=== PATIENT | female | born 1990 | race Two or more races ===

== ENCOUNTER → 2016-05-25 | Outpatient (CLI) | payer OTHER ==
[2016-05-25 16:38] LABS: LIPASE 476.8 U/L (23-300)
[2016-05-30 07:25] LABS: DEAMIDATED GLIADIN IGA AB 2 units (0-19); DEAMIDATED GLIADIN IGG AB 2 units (0-19); IMMUNOGLOBULIN A 2 143 mg/dL (87-352); T-TRANSGLUTAMINASE (TTG) IGG <2 U/mL (0-5)
== END ==
LOC: LAB 15:40
PROVIDERS: ATTEND Specialist
DX: K85.90 Acute pancreatitis without necrosis or infection, unspecified (principal); K58.9 Irritable bowel syndrome, unspecified; R10.9 Unspecified abdominal pain; K90.0 Celiac disease
CPT/HCPCS: 36415; 82150; 83520; 83690; 86677

== ENCOUNTER → 2016-06-15 | Outpatient (CLI) | payer OTHER ==
[2016-06-15 15:09] LABS: ALANINE AMINOTRANSFERASE 26 U/L (9-52); ALBUMIN 4.7 g/dL (3.5-5.0); ALKALINE PHOSPHATASE 73 U/L (38-126); AMYLASE 112 U/L (30-110); ANION GAP 13 (5-19); ASPARTATE AMINO TRANSFERASE 20 U/L (14-36); BILIRUBIN,TOTAL 2.1 mg/dL (0.2-1.3); BLOOD UREA NITROGEN 14 mg/dL (7-20); CALCIUM 9.4 mg/dL (8.4-10.2); CARBON DIOXIDE 24 mmol/L (22-30); CHLORIDE 103 mmol/L (98-107); GLUCOSE 93 mg/dL (75-110); LIPASE 640.4 U/L (23-300); SODIUM 140.3 mmol/L (137-145); TOTAL PROTEIN 7.3 g/dL (6.3-8.2)
== END ==
LOC: LAB 14:39
PROVIDERS: ATTEND Specialist
DX: R10.9 Unspecified abdominal pain (principal)
CPT/HCPCS: 36415; 80053; 82150; 83690

== ENCOUNTER 2016-06-23 09:28 | Day surgery (SDC) | payer OTHER ==
--- NOTE | 2016-06-22 13:55 | HISTORY AND PHYSICAL E ---
History and Physical NAME: CEDRIC GUERIN : 1990 AGE: 25Y ADMITTED: 06/23/2016 ROOM: CHIEF COMPLAINT: Abdominal pain, question pancreatitis, constipation, multiple history of pancreatitis, 06/2011, 06/2012. SOCIAL HISTORY: . Does not smoke. Does not drink. PAST SURGICAL HISTORY: 1. Appendectomy. 2. Cholecystectomy. ALLERGIES: The patient stated that she may be allergic to POTATO. REVIEW OF SYSTEMS: HEAD, EYES, EARS, NOSE AND THROAT: Eyeglasses. RESPIRATORY: Negative. ENDOCRINE: Negative. GASTROINTESTINAL: Pancreatitis, abdominal pain, constipation. ONCOLOGY/HEMATOLOGY: Negative. NEUROLOGIC: Anxiety. FAMILY HISTORY: Father is alive. Mom is alive. PHYSICAL EXAMINATION: VITAL SIGNS: Blood pressure is 190/60. Pulse 70. Respirations 18. Temperature is 98. HEAD, EYES, EARS, NOSE AND THROAT: Normal. ABDOMEN: Soft. NEUROLOGIC: Exam negative. MEDICATIONS: 1. Tylenol. 2. control. CONCLUSIONS: Recurrent pancreatitis. PLAN: Rule out peptic ulcer, abdominal pain, reflux, H. pylori. Repeat lab studies. Soft diet. Upper endoscopy scheduled for 06/23/2016. DICTATING PHYSICIAN: LATHA ROUSE M.D. [id number] PHY#: [id number] ID: [id number] JOB#: [id number] ACCT: [id number] cc:[facility] LATHA ROUSE M.D. >
[~2016-06-23 09:28] MED LIST: EPINEPHRINE INJ 1 MG/10 ML DISP.SYRIN ONE; FENTANYL CITRATE INJ/PF 100 MCG/2 ML AMPUL ONE; FLUMAZENIL INJ 0.5 MG/5 ML VIAL IV ONE; GLYCOPYRROLATE INJ 0.4 MG/2 ML VIAL ONE; NALOXONE HCL INJ/PF 0.4 MG/1 ML SDV ONE; ONDANSETRON HCL INJ/PF 4 MG/2 ML SDV ONE; PROMETHAZINE HCL INJ 25 MG/1 ML VIAL ONE
[2016-06-23] MEDS: MIDAZOLAM 2 MG/2 ML INJ ONE ×2 (10:12→10:17)
--- NOTE | 2016-06-23 11:55 | DISCHARGE SUMMARY E ---
Discharge Summary NAME: CEDRIC GUERIN : 1990 AGE: 25Y ADMITTED: 06/23/2016 DISCHARGED: 06/23/2016 PROCEDURE: EGD with biopsy. HISTORY: This 25-year-old female presented with abdominal pain, questionable pancreatitis, high lipase. Today's upper scope shows no ulcers. She did have mild esophagitis, small hiatus hernia, mild gastritis, mild duodenitis. Gastric biopsy obtained for H. pylori. DISCHARGE PLAN: Awaiting biopsy results. Soft diet. Continue present management. The patient is to see us in the office in the next few days. FINAL DIAGNOSES: 1. Small hiatus hernia. 2. Mild esophagitis. 3. Mild gastritis. 4. Mild duodenitis. 5. No ulcers and no malignancy. DICTATING PHYSICIAN: LATHA ROUSE M.D. [id number] PHY#: [id number] ID: [id number] JOB#: [id number] ACCT: [id number] cc:[facility] LATHA ROUSE M.D. >
--- NOTE | 2016-06-23 12:13 | OPERATIVE REPORT E ---
Operative Report NAME: CEDRIC GUERIN : 1990 AGE: 25Y DATE OF SURGERY: 06/23/2016 ROOM: PREOPERATIVE DIAGNOSIS: The patient is 25 with preop of abdominal pain, question pancreatitis. POSTOPERATIVE DIAGNOSIS: 1. Small hiatal hernia 0.5 cm. 2. Mild esophagitis. 3. Mild gastritis. 4. Mild duodenitis. PROCEDURES: 1. Esophagoscopy. 2. Gastroscopy. 3. Duodenoscopy. SURGEON: LATHA ROUSE M.D. TISSUE REMOVED OR ALTERED: Gastric biopsy, H pylori. ANESTHESIA: Versed 4, fentanyl 100. DESCRIPTION OF PROCEDURE: The patient said she cannot take Zofran. After adequate sedation, baby scope passed under guided vision. No difficulties. Esophagoscopy: Junction at 35, 0.5 cm hiatal hernia. No evidence of stricture. Mild esophagitis. Gastroscopy: Mild gastritis. No ulcers. Duodenoscopy: Mild duodenitis. CONCLUSION: 1. Mild esophagitis. 2. Mild gastritis. 3. Mild duodenitis. 4. Gastric biopsy obtained. PLAN: The patient tolerated the procedure well and discharged to her room in stable condition. DICTATING PHYSICIAN: LATHA ROUSE M.D. [id number] Y#: [id number] ID: [id number] JOB#: [id number] ACCT: [id number] cc:[facility] LATHA STEIN M.D. >
[2016-06-23 12:32] VITALS: BP 85/54
== END 2016-06-23 11:40 | disposition home or self-care (01) ==
LOC: END 09:28
PROVIDERS: ATTEND Specialist
PROC: 0DB68ZX Excision of Stomach, Via Natural or Artificial Opening Endoscopic, Diagnostic (ICD-10-PCS; principal; 2016-06-23 10:00)
DX: K20.9 Esophagitis, unspecified (principal); K29.70 Gastritis, unspecified, without bleeding; K29.80 Duodenitis without bleeding; K44.9 Diaphragmatic hernia without obstruction or gangrene; Z90.49 Acquired absence of other specified parts of digestive tract
CPT/HCPCS: 43239; 88342 ×2; 88305 ×2; J2250; J3010; J0171; J2310; J2405; J2550; J3490

== ENCOUNTER → 2016-12-29 | Outpatient (CLI) | payer OTHER ==
[2016-12-29 14:49] LABS: APPEARANCE,URINE SLIGHTLY-CLOUDY; BILIRUBIN,URINE NEGATIVE (NEGATIVE); GLUCOSE, URINE NEGATIVE (NEGATIVE); KETONES,URINE NEGATIVE (NEGATIVE); LEUKOCYTE ESTERASE,URINE NEGATIVE (NEGATIVE); NITRITE,URINE NEGATIVE (NEGATIVE); PROTEIN,URINE NEGATIVE (NEGATIVE); URINE SPECIFIC GRAVITY 1.012; UROBILINOGEN,URINE NEGATIVE mg/dL (<2.0)
[2016-12-29 14:58] LABS: ALANINE AMINOTRANSFERASE 24 U/L (9-52); ALBUMIN 4.2 g/dL (3.5-5.0); ALKALINE PHOSPHATASE 395 U/L (38-126); AMYLASE 83 U/L (30-110); ANION GAP 10 (5-19); ASPARTATE AMINO TRANSFERASE 20 U/L (14-36); BILIRUBIN,DIRECT 0.2 mg/dL (0.0-0.4); BILIRUBIN,TOTAL 2.4 mg/dL (0.2-1.3); BLOOD UREA NITROGEN 14 mg/dL (7-20); CALCIUM 9.5 mg/dL (8.4-10.2); CARBON DIOXIDE 26 mmol/L (22-30); CHLORIDE 104 mmol/L (98-107); CREATININE RESULT 0.76 mg/dL (0.52-1.25); GLUCOSE 112 mg/dL (75-110); LIPASE 347.9 U/L (23-300); POTASSIUM 3.9 mmol/L (3.6-5.0); SODIUM 140.3 mmol/L (137-145); TOTAL PROTEIN 6.8 g/dL (6.3-8.2)
== END ==
LOC: LAB 14:21
PROVIDERS: ATTEND Specialist
DX: R10.9 Unspecified abdominal pain (principal)
CPT/HCPCS: 36415; 80053; 81001; 82150; 83690

== ENCOUNTER → 2017-04-04 | Outpatient (CLI) | payer OTHER ==
[2017-04-04 14:26] LABS: ABSOLUTE EOSINOPHILS # (AUTO) 0.1 10^3/uL (0.0-0.6); ABSOLUTE LYMPHOCYTES (AUTO) 2.2 10^3/uL (0.5-4.7); ABSOLUTE MONOCYTES (AUTO) 0.3 10^3/uL (0.1-1.4); ABSOLUTE NEUT (AUTO) 4.2 10^3/uL (1.7-8.2); BASOPHILS % (AUTO) 0.3 % (0-2); EOSINOPHILS % (AUTO) 1.2 % (0-6); HEMOGLOBIN 13.8 g/dL (12.0-15.5); HGB HCT DIFFERENCE 1.4; LYMPHOCYTES % (AUTO) 32.2 % (13-45); MEAN CORPUSCULAR HEMOGLOBIN 30.5 pg (27.0-33.4); MEAN CORPUSCULAR HGB CONC 34.5 g/dL (32.0-36.0); MEAN CORPUSCULAR VOLUME 89 fl (80-97); MONOCYTES % (AUTO) 4.9 % (3-13); RED BLOOD COUNT 4.51 10^6/uL (3.72-5.28); RED CELL DISTRIBUTION WIDTH 13.4 % (11.5-14.0); SEGMENTED NEUTROPHILS % (AUTO) 61.4 % (42-78); WHITE BLOOD COUNT 6.8 10^3/uL (4.0-10.5)
[2017-04-04 14:46] LABS: ALANINE AMINOTRANSFERASE 32 U/L (9-52); ALBUMIN 4.2 g/dL (3.5-5.0); ALKALINE PHOSPHATASE 47 U/L (38-126); AMYLASE 84 U/L (30-110); ANION GAP 10 (5-19); ASPARTATE AMINO TRANSFERASE 22 U/L (14-36); BILIRUBIN,DIRECT 0.3 mg/dL (0.0-0.4); BILIRUBIN,TOTAL 1.6 mg/dL (0.2-1.3); BLOOD UREA NITROGEN 18 mg/dL (7-20); CALCIUM 9.3 mg/dL (8.4-10.2); CARBON DIOXIDE 27 mmol/L (22-30); CHLORIDE 104 mmol/L (98-107); GLUCOSE 91 mg/dL (75-110); LIPASE 413.5 U/L (23-300); POTASSIUM 4.1 mmol/L (3.6-5.0); TOTAL PROTEIN 6.7 g/dL (6.3-8.2)
== END ==
LOC: LAB 14:00
PROVIDERS: ATTEND Specialist
DX: R10.9 Unspecified abdominal pain (principal)
CPT/HCPCS: 36415; 80053; 82150; 83690; 85025

== ENCOUNTER → 2017-04-10 | Outpatient (CLI) | payer OTHER ==
--- NOTE | 2017-04-11 08:40 | RADIOLOGY REPORT (SQ) ---
EXAM DESCRIPTION: MRI ABDOMEN WITHOUT COMPLETED DATE/TIME: 04/10/2017 5:00 pm REASON FOR STUDY: ABDOMINAL PAIN R19.01 RIGHT UPPER QUADRANT ABDOMINAL SWELLING, MASS AND LUM COMPARISON: None. TECHNIQUE: Noncontrast imaging with attention to the adrenal glands, including in and out of phase T 1 sequences. LIMITATIONS: None. FINDINGS: ADRENAL GLANDS: Normal configuration. No mass. GALLBLADDER: Surgically absent. LIVER AND BILIARY STRUCTURES: Normal. No ductal dilatation. No common bile duct stones on the key l T2 images through the biliary system, coronal images 8-10. SPLEEN: Normal. PANCREAS: Normal. Peripancreatic tissues normal. PERITONEUM: No ascites, gross adenopathy or implants. KIDNEYS: No other significant finding. IMPRESSION: POST CHOLECYSTECTOMY. OTHERWISE UNREMARKABLE STUDY TECHNICAL DOCUMENTATION: JOB ID: [id number] [employer]- All Rights Reserved
== END ==
LOC: RAD 15:51
PROVIDERS: ATTEND Specialist
DX: R19.01 Right upper quadrant abdominal swelling, mass and lump (principal); Z90.49 Acquired absence of other specified parts of digestive tract
CPT/HCPCS: 74181